=== PATIENT | female | born 1970 | race Caucasian/White ===

== ENCOUNTER 2020-11-24 10:13 | Emergency (ER) | payer OTHER ==
[~2020-11-24] VITALS: Ht 167.6 cm; Wt 77.2 kg
[2020-11-24 10:27] VITALS: BP 135/75
--- NOTE | 2020-11-24 10:56 | PHYS DOC ---
Past History Past Surgical History: Appendectomy, Alcohol Use: Rarely General Adult EDM: Chief Complaint: EYE PROBLEMS HPI: HPI: Patient is a 50 year old female who presents with right eye redness and slight discomfort. Started yesterday. No drainage. Has noticed a yellow spot on the medial portion of her left conjunctivae. Denies vision changes. Does have some slight pressure sensation in her right eye. Denies any trauma. No fevers or chills. No sick contacts. She does have seasonal allergies, but has not had this before. She is not a contact wearer. She does wear glasses. Review of Systems: Review of Systems: Constitutional: Denies fever or chills Eyes: Right eye redness HENT: Denies nasal congestion or sore throat Respiratory: Denies cough or shortness of breath Cardiovascular: Denies chest pain or edema GI: Denies abdominal pain, nausea, vomiting, bloody stools or diarrhea : Denies dysuria Musculoskeletal: Denies back pain or joint pain Integument: Denies rash Neurologic: Denies headache, focal weakness or sensory changes Endocrine: Denies polyuria or polydipsia Lymphatic: Denies swollen glands Psychiatric: Denies depression or anxiety Allergies: Allergies: Allergies Coded Allergies Type Severity Reaction Last Updated Verified tetracycline Allergy Unknown 11/24/20 Yes Physical Exam: PE: Constitutional: Well developed, well nourished, no acute distress, non-toxic appearance. [] HENT: Normocephalic, atraumatic, bilateral external ears normal, oropharynx moist, no oral exudates, nose normal. [] Eyes: Pupils equal, round, reactive to light. External ocular motions are intact. Left conjunctive is normal. Right conjunctive a with medial redness and a small yellowish area. Fluorescein exam with no conjunctival uptake. The yellow area that is clearly on the conjunctive a did seem to have some fluorescein uptake. Vision 20/20 OD, 20/30 OS. IOP is unable to be checked due to Lucien-Pen malfunction. [] Neck: Normal range of motion, no tenderness, supple, no stridor. [] Cardiovascular:Heart rate regular rhythm, no murmur [] Lungs & Thorax: Normal work of breathing. Skin: Warm, dry, no erythema, no rash. [] Back: No tenderness, no CVA tenderness. [] Extremities: No tenderness, no cyanosis, no clubbing, ROM intact, no edema. [] Neurologic: Alert and oriented X 3, normal motor function, normal sensory function, no focal deficits noted. [] Psychologic: Affect normal, judgement normal, mood normal. [] Current Patient Data: Vital Signs: Vital Signs Date Time Temp Pulse Resp B/P (MAP) Pulse Ox O2 Delivery O2 Flow Rate FiO2 11/24/20 10:27 98.4 72 16 135/75 (95) 96 Room Air EKG: EKG: [] Radiology/Procedures: Radiology/Procedures: [] Heart Score: C/O Chest Pain: No Risk Factors: Risk Factors: DM, Current or recent (<one month) smoker, HTN, HLP, family history of CAD, obesity. Risk Scores: Score 0 - 3: 2.5% MACE over next 6 weeks - Discharge Home Score 4 - 6: 20.3% MACE over next 6 weeks - Admit for Clinical Observation Score 7 - 10: 72.7% MACE over next 6 weeks - Early Invasive Strategies Course & Med Decision Making: Course & Med Decision Making Pertinent Labs and Imaging studies reviewed. (See chart for details) Patient is a 50-year-old female who presents with right eye redness and slight discomfort starting yesterday. No trauma. No corneal abrasion on fluorescein exam. Pupils are reactive, vision is normal. Pain is not severe. Attempted to check IOP to exclude glaucoma, but our Lucien-Pen is not working. I do have a very low suspicion for glaucoma. No evidence of iritis, pupils round and no photophobia. No e/o hyphema or endopthalmitis. Most likely seems to be conjunctivitis. Given the unilateral nature and no other viral or allergic symptoms we will treat with erythromycin. Dragon Disclaimer: Dragnarayan Disclaimer: This electronic medical record was generated, in whole or in part, using a voice recognition dictation system. Departure Departure: Impression: Primary Impression: Conjunctivitis Disposition: HOME / SELF CARE / HOMELESS Condition: STABLE Referrals: PCP,NO (PCP) Patient Instructions: Bacterial Conjunctivitis Additional Instructions: If your pain severely worsens or you have vision changes please return here or go to another emergency department. [facility] does have ophthalmology available. ARLEY MARKS MD Nov 24, 2020 10:56
== END 2020-11-24 11:06 | disposition home or self-care (01) ==
LOC: ER 10:13
DX: H10.31 Unspecified acute conjunctivitis, right eye (principal); Z88.1 Allergy status to other antibiotic agents
CPT/HCPCS: 99281